=== PATIENT | male | born 1950 | race Caucasian/White ===

== ENCOUNTER 2022-03-15 07:38 | Emergency (ER) | payer SELFPAY | END 2022-03-15 09:06 | disposition home or self-care (01) | LOC: JP.ED 07:38 | DX: T83.091A Other mechanical complication of indwelling urethral catheter, initial encounter (principal); N40.1 Benign prostatic hyperplasia with lower urinary tract symptoms; R33.8 Other retention of urine | CPT/HCPCS: 51702; 81001; 87086; 87088; 87186; 99283 ==